=== PATIENT | female | born 1970 | race Caucasian/White ===

== ENCOUNTER 2021-08-03 18:09 | Emergency (ER) | payer MEDICAID ==
[~2021-08-03] VITALS: Ht 152.4 cm; Wt 58.0 kg
[2021-08-03 18:14] VITALS: BP 188/74
== END 2021-08-03 18:58 | disposition left against medical advice (07) ==
LOC: ER 18:09
DX: Z53.21 Procedure and treatment not carried out due to patient leaving prior to being seen by health care provider (principal)
CPT/HCPCS: 93005